=== PATIENT | male | born 1950 | race Caucasian/White ===

== ENCOUNTER → 2017-05-08 | Outpatient (CLI) | payer MEDICARE, BC ==
[~2017-05-08] MED LIST: ADVAIR 250-501 EACH IH; AVODART0.5 MG PO; COMPAZINE10 MG PO; FLOMAX0.4 MG PO; FLOVENT DISKUS50 MCG NS; LEVAQUIN500 MG PO; LOVENOX DP120 MG/0.8 SQ
== END | disposition home or self-care (01) ==
LOC: RAD.S 10:00
DX: C67.2 Malignant neoplasm of lateral wall of bladder (principal); I10 Essential (primary) hypertension; I82.422 Acute embolism and thrombosis of left iliac vein; I82.412 Acute embolism and thrombosis of left femoral vein